=== PATIENT | male | born 1990 | race Two or more races ===

== ENCOUNTER 2024-04-24 06:34 | Day surgery (SDC) | payer OTHER, SELFPAY ==
[2024-04-24] VITALS (8 sets, daily range): BP systolic 110–144; BP diastolic 59–79; BMI 31.8
[2024-04-24] MEDS: NORMOSOL-R 1000 IV (09:13)
[2024-04-24 09:20] LABS: Hematocrit 43.6 % (39.0-52.0); Hemoglobin 15.5 g/dL (13.0-18.0); Mean Corp Hgb Conc. 35.6 g/dL (33.0-37.0); Mean Corpuscular Hgb 29.2 pg (27.0-31.0); Mean Corpuscular Volume 82.3 fL (80.0-94.0); Mean Platelet Volume 11.2 fL (7.4-10.4); Platelet Count 198 10^3/uL (130-400); White Blood Cell Count 6.4 10^3/uL (4.8-10.8)
[2024-04-24] MEDS: DILAUDID 0.5 MG IV (14:38)
== END 2024-04-24 18:10 | disposition home or self-care (01) ==
LOC: SDS 06:34
PROVIDERS: ATTENDING PHYSICIAN Orthopaedic Surgery Hand Surgery
DX: S42.32 Transverse fracture of shaft of humerus (principal); X58.XXXD Exposure to other specified factors, subsequent encounter
CPT/HCPCS: 24435; 20680; 73060; 85027; 93005

== ENCOUNTER 2025-03-29 20:22 | Emergency (ER) | payer OTHER, SELFPAY ==
[2025-03-29 20:29] VITALS: BP 127/82
--- NOTE | 2025-03-29 23:25 | ED.GENMED ---
History of Present Illness
General
Chief Complaint: Eye Problems
Source: patient and spouse
Exam Limitations: none
Time Seen by Provider: 03/29/25 23:03
Nursing documentation reviewed up to this point in time: agreed with
History of Present Illness
History of Present Illness:
35-year-old male past medical history of GERD presenting to the emergency department today with concerns of foreign body sensation to the right eye after doing tiling work earlier in the evening. Denies additional symptoms otherwise.
Past History
Past History
ED Past Medical History: None
ED Past Surgical History: None
Social History
Tobacco: Non-smoker
Review of Systems
Review of Systems
Allergies reviewed?: Yes
All Other Systems: ROS reviewed and negative except as documented in HPI and ROS
Phy Exam
Physical Exam
Physical Exam:
GENERAL: Alert , in no apparent distress
EYE: Irritation to the right eye, fluorescein examination with linear corneal abrasion in vertical fashion in the central portion of the cornea. Small foreign body was found in the upper eyelid with lid everted. This was removed, pupils equal and
reactive
NECK: Supple, no significant adenopathy.
ENT: o/p clr, mmm.
CARDIAC: Regular rate and rhythm .
LUNGS: Clear breath sounds bilaterally, no acute respiratory distress, no wheezes/rales/rhonchi
ABDOMEN: Soft, without focal tenderness, no r/g, no cvat
NEUROLOGICAL: Alert and oriented, no focal neuro deficits
SKIN: Warm and dry, skin intact.
MUSCULOSKELETAL: No edema, well perfused.
PSYCH: Normal and appropriate interaction.
Course
Orders/Labs/Results
Orders:
Orders
03/29/25 23:24
Erythromycin (Ilotycin) [Erythromycin 0.5% Ophthalmic Ointment] See Dose Instructions OPHTH NOW STA
Vital Signs
Initial and Last Documented VS:
Initial Vital Signs
Temp Pulse Resp BP Pulse Ox
98.6 F 71 16 127/82 97
03/29/25 20:29 03/29/25 20:29 03/29/25 20:29 03/29/25 20:29 03/29/25 20:29
Last Documented Vital Signs
Temp Pulse Resp BP Pulse Ox
97.8 F 58 18 110/73 96
03/30/25 00:25 03/30/25 00:25 03/30/25 00:25 03/30/25 00:25 03/30/25 00:25
MDM/Problems Addressed
MDM/Problems Addressed:
35-year-old male presenting to the emergency department with foreign body sensation to the right eye. This was present since doing tile work prior to arrival. Small piece of tile was found in the upper eyelid and removed he did have small corneal
abrasions. Started on erythromycin but otherwise stable for outpatient follow-up. Return precautions given.
*Critical Care Note
Total Time (30-74mins, 75-104mins- exclusive of procedures): Not Applicable
ED Attending Note
-
Portions of this chart may have been created with voice recognition software.� Occasional wrong word or��sound alike� substitutions may have occurred due to the inherent limitations of voice recognition software.
Discharge Plan
Departure
Patient Disposition: Home (Routine Discharge)
Date of Disposition: 03/29/25
Time of Disposition: 23:25
Patient with high blood pressure during this ER visit?: No
Condition: Good
Covid-19: Not Applicable
Discharge Problem:
Corneal abrasion
Instructions: Corneal Abrasion (DC)
Prescriptions:
No Action
ibuprofen 400 mg Tablet
400 mg PO Q6H PRN (Reason: pain)
Referrals:
NONE,* [Family Provider] -
June Ferraro MD [Active] - Follow up in 5-7 days
Activity Restrictions/Additional Instructions:
You came to the emergency department today with concerns of foreign body to your right eye. Please use the erythromycin ointment to the area. Please follow closely with the eye doctor for any ongoing symptoms. Return for any worsening, new or
concerning symptoms.
Interventions
Interventions:
*Risk Screen - Suicide Last Done: 03/29/25 20:29
*General Assessment Last Done: 03/29/25 20:29
*Neglect/Abuse Screening Last Done: 03/30/25 00:24
*ED- Fall Risk Assessment Last Done: 03/30/25 00:24
*ED COVID-19 Vaccine History Last Done: 03/29/25 20:29
*Nursing Disposition Last Done: 03/30/25 00:25
Discharge Date and Time
Discharge Date/Time: 03/30/25 00:26
Print Language: MACANESE
[2025-03-30] MEDS: ERYTHROMYCIN 0.5% OPHTHALMIC OINTMENT 1 APPLIC OPHTH (00:23)
[2025-03-30 00:25] VITALS: BP 110/73
== END 2025-03-30 00:26 | disposition home or self-care (01) ==
LOC: EMR 20:22
PROVIDERS: EMERGENCY PHYSICIAN Student in an Organized Health Care Education/Training Program
DX: T15.01XA Foreign body in cornea, right eye, initial encounter (principal); W44.8XXA Other foreign body entering into or through a natural orifice, initial encounter
CPT/HCPCS: 99283

== ENCOUNTER → 2025-04-11 09:53 | Outpatient (REF) | payer OTHER, SELFPAY | LOC: MRI 09:53 | PROVIDERS: ATTENDING PHYSICIAN Physical Medicine & Rehabilitation | DX: M23.91 Unspecified internal derangement of right knee (principal) | CPT/HCPCS: 73721 ==